=== PATIENT | female | born 1995 | race Caucasian/White ===

== ENCOUNTER → 2021-07-26 | Outpatient (CLI) | payer OTHER ==
[~2021-07-26] MED LIST: COLACE 100MG C100 MG PO; IBUPROFEN600 MG PO; LORTAB 5-325 M1 EACH PO; PRENATAL VITAM1 EAC6 PO
== END ==
LOC: KOH-I 09:22
DX: M54.50 Low back pain, unspecified (principal)
CPT/HCPCS: 72100; 73522